=== PATIENT | female | born 2000 | race Two or more races ===

== ENCOUNTER 2018-12-09 10:25 | Emergency (ER) | payer MEDICAID ==
[~2018-12-09] VITALS: Ht 152.4 cm; Wt 49.9 kg
[2018-12-09 10:37] VITALS: BP_DIAS 63
[2018-12-09 12:00] VITALS: BP_SYST 103
== END 2018-12-09 12:29 | disposition home or self-care (01) ==
LOC: ER 10:25
DX: H60.92 Unspecified otitis externa, left ear (principal); H66.91 Otitis media, unspecified, right ear; R07.0 Pain in throat; M54.9 Dorsalgia, unspecified; Z90.49 Acquired absence of other specified parts of digestive tract
CPT/HCPCS: 87804